=== PATIENT | male | born 1975 | race Caucasian/White ===

== ENCOUNTER 2019-03-08 06:06 | Emergency (ER) | payer BC ==
--- NOTE | 2019-03-08 07:49 | RAD REPORT ---
EXAM DESCRIPTION: CT - Head Brain Wo Cont - 03/08/2019 6:49 am CLINICAL HISTORY: Headache COMPARISON: None. TECHNIQUE: Computed axial tomography of the head was obtained. IV contrast was not requested. All CT scans are performed using dose optimization technique as appropriate and may include automated exposure control or mA/KV adjustment according to patient size. FINDINGS: An intracranial bleed is not seen . The ventricles are normal in caliber. No extra-axial fluid collection is noted. Fluid within the sinuses/ mastoids is not seen. IMPRESSION: No acute intracranial abnormality is seen. If patient's symptoms persist MRI of the bra in would be recommended.
--- NOTE | 2019-03-08 08:03 | ER ---
Nurse's Notes [facility] Name: Ravi Angeles Age: 43 yrs Sex: Male : 1975 Arrival Date: 03/08/2019 Time: 06:09 Bed 7 Private MD: Diagnosis: Hypertensive heart disease Presentation: 03/08 06:18 Presenting complaint: Patient states: woke up this morning and heard or felt "a pop" bb behind right ear has no other symptoms, denies pain, difficulty swallowing, weakness, just wants to make sure he did not have a stroke. Transition of care: patient was not received from another setting of care. Onset of symptoms was March 08, 2019. Risk Assessment: Do you want to hurt yourself or someone else? Patient reports no desire to harm self or others. Initial Sepsis Screen: Does the patient meet any 2 criteria? No. Patient's initial sepsis screen is negative. Does the patient have a suspected source of infection? No. Patient's initial sepsis screen is negative. Care prior to arrival: None. 06:18 Method Of Arrival: Ambulatory bb 06:18 Acuity: AWAIS 4 bb Triage Assessment: 07:00 General: Appears in no apparent distress. comfortable, Behavior is cooperative, bp appropriate for age, anxious. Pain: Denies pain. EENT: No deficits noted. Neuro: No deficits noted. Cardiovascular: Rhythm is sinus rhythm. Respiratory: No deficits noted. GI: No signs and/or symptoms were reported involving the gastrointestinal system. : No signs and/or symptoms were reported regarding the genitourinary system. Derm: No deficits noted. Musculoskeletal: No deficits noted. Historical: - Allergies: 06:21 No Known Allergies; bb - Home Meds: 06:21 Lisinopril Oral [Active]; bb - PMHx: 06:21 Hypertension; bb - PSHx: 06:21 None; bb - Immunization history:: Adult Immunizations up to date. - Social history:: Smoking status: Patient uses tobacco products, vapes, Patient uses alcohol, occasionally. Patient/guardian denies using street drugs. - Ebola Screening: : No symptoms or risks identified at this time. Screenin:16 Abuse screen: Denies threats or abuse. Nutritional screening: No deficits noted. ea Tuberculosis screening: No symptoms or risk factors identified. Fall Risk None identified. 06:22 VAN Screening: Arm Drift: Patient shows no arm weakness. Patient is VAN negative. bb Assessment: 06:14 General: Appears in no apparent distress. Behavior is calm, cooperative, appropriate ea for age. Pain: Denies pain. Neuro: Level of Consciousness is awake, alert, obeys commands, Oriented to person, place, time, situation. Cardiovascular: Patient's skin is warm and dry. Respiratory: Airway is patent Respiratory effort is even, unlabored, Respiratory pattern is regular, symmetrical. Derm: Skin is pink, warm \\T\\ dry. 07:00 Reassessment: RECD REPORT FROM ALEJANDRA CONNOLLY. 43YO WM P/W SUBJECTIVE NEURO S/S. NO OBJECTIVE bp FINDINGS AT THIS TIME. CT RESULTS PENDING. 08:07 Reassessment: PT D/C HOME AMBULATORY, DX WITH HYPERTENSIVE HEART DISEASE. bp Vital Signs: 06:21 BP 132 / 97; Pulse 72; Resp 16 S; Temp 97.3(O); Pulse Ox 97% on R/A; Weight 92.99 kg bb (R); Height 6 ft. 2 in. (187.96 cm) (R); Pain 0/10; 07:00 BP 118 / 84; Pulse 71; Resp 16; Pulse Ox 98% ; bp 08:08 BP 119 / 88; Pulse 62; Resp 16; Temp 97.5; Pulse Ox 98% ; bp 06:21 Body Mass Index 26.32 (92.99 kg, 187.96 cm) bb ED Course: 06:09 Patient arrived in ED. am2 06:14 Alejandra Manzo, CATHLEEN is Primary Nurse. ea 06:15 Donald Monahan PA is PHCP. cp 06:15 Humble Aggarwal MD is Attending Physician. cp 06:19 Patient has correct armband on for positive identification. Bed in low position. Call ea light in reach. Side rails up X2. 06:19 Arm band placed on right wrist. Patient placed in an exam room, on a stretcher, on ea pulse oximetry. 06:20 Triage completed. bb 06:47 CT completed. Patient tolerated procedure well. Patient moved to CT BY WALKING. Patient eh moved back from CT. 06:53 CT Head Brain wo Cont In Process Unspecified. EDMS 07:20 Primary Nurse role handed off by Alejandra Manzo RN bp 07:20 Cory Rasmussen, RN is Primary Nurse. bp 08:08 No provider procedures requiring assistance completed. Patient did not have IV access bp during this emergency room visit. Administered Medications: No medications were administered Outcome: 08:02 Discharge ordered by . cp 08:08 Discharged to home ambulatory. bp 08:08 Condition: stable 08:08 Discharge instructions given to patient, Instructed on discharge instructions, follow up and referral plans. Demonstrated understanding of instructions, follow-up care. 08:09 Patient left the ED. bp Signatures: Dispatcher [employer] EDMS Harry Banks Brenda, RN RN bb Donald Monahan, NOAH PA Buffy Olguin am2 Alejandra Manzo, RN RN Cory Chiu, RN RN bp
--- NOTE | 2019-03-08 08:04 | EDPHYS ---
Physician Documentation [facility] Name: Ravi Angeles Age: 43 yrs Sex: Male : 1975 Arrival Date: 03/08/2019 Time: 06:09 Bed 7 Private MD: ED Physician Humble Aggarwal HPI: 03/08 06:26 This 43 yrs old Male presents to ER via Ambulatory with complaints of heard cp pop on side of head. 06:26 Patient reports he awoke this morning about 0530 and felt or heard a "pop" on right cp side of head. Patient reports having slight pain that has resolved. Denies any other complaints. Historical: - Allergies: 06:21 No Known Allergies; bb - Home Meds: 06:21 Lisinopril Oral [Active]; bb - PMHx: 06:21 Hypertension; bb - PSHx: 06:21 None; bb - Immunization history:: Adult Immunizations up to date. - Social history:: Smoking status: Patient uses tobacco products, vapes, Patient uses alcohol, occasionally. Patient/guardian denies using street drugs. - Ebola Screening: : No symptoms or risks identified at this time. ROS: 06:30 Eyes: Negative for injury, pain, redness, and discharge. cp 06:30 Constitutional: Negative for body aches, chills, fever. 06:30 ENT: Negative for drainage from ear(s), ear pain, sore throat, difficulty swallowing, difficulty handling secretions. 06:30 Cardiovascular: Negative for chest pain, edema, palpitations. 06:30 Respiratory: Negative for cough, shortness of breath, wheezing. 06:30 Neuro: Negative for altered mental status, dizziness, gait disturbance, headache, numbness, seizure activity, weakness. 06:30 All other systems are negative. Exam: 06:37 Head/Face: Normocephalic, atraumatic. cp 06:37 Constitutional: The patient appears in no acute distress, alert, awake, non-diaphoretic, non-toxic, well developed, well nourished. 06:37 Eyes: Periorbital structures: appear normal, Pupils: equal, round, and reactive to light and accomodation, Extraocular movements: intact throughout, Conjunctiva: normal, no exudate, no injection, Lids and lashes: appear normal, bilaterally. 06:37 ENT: External ear(s): are unremarkable, Ear canal(s): are normal, clear, TM's: dullness, bilaterally, Nose: is normal, Mouth: is normal, Posterior pharynx: is normal, airway is patent, no erythema, no exudate. 06:37 Neck: ROM/movement: is normal, is supple, without pain, no range of motions limitations, no nuchal rigidity. 06:37 Chest/axilla: Inspection: normal, Palpation: is normal, no crepitus, no tenderness. 06:37 Cardiovascular: Rate: normal, Rhythm: regular, Heart sounds: murmur, not appreciated. 06:37 Respiratory: the patient does not display signs of respiratory distress, Respirations: normal, no use of accessory muscles, no retractions, no splinting, no tachypnea, labored breathing, is not present, Breath sounds: are clear throughout, no decreased breath sounds, no stridor, no wheezing. 06:37 Abdomen/GI: Inspection: abdomen appears normal, Palpation: abdomen is soft and non-tender, in all quadrants. 06:37 Skin: no rash present. 06:37 Neuro: Orientation: to person, place \\T\\ time. Mentation: is normal, Cerebellar function: is grossly normal, Motor: moves all fours, strength is normal, Sensation: is normal. Vital Signs: 06:21 BP 132 / 97; Pulse 72; Resp 16 S; Temp 97.3(O); Pulse Ox 97% on R/A; Weight 92.99 kg bb (R); Height 6 ft. 2 in. (187.96 cm) (R); Pain 0/10; 07:00 BP 118 / 84; Pulse 71; Resp 16; Pulse Ox 98% ; bp 08:08 BP 119 / 88; Pulse 62; Resp 16; Temp 97.5; Pulse Ox 98% ; bp 06:21 Body Mass Index 26.32 (92.99 kg, 187.96 cm) bb MDM: 06:23 Patient medically screened. cp 07:30 Differential diagnosis: migraine, subarachnoid bleed, subdural hematoma, temporal cp arteritis, tension headache. 08:01 Data reviewed: vital signs, nurses notes, radiologic studies, CT scan. cp 08:02 Counseling: I had a detailed discussion with the patient and/or guardian regarding: the cp historical points, exam findings, and any diagnostic results supporting the discharge/admit diagnosis, radiology results, to return to the emergency department if symptoms worsen or persist or if there are any questions or concerns that arise at home. 03/08 06:27 Order name: CT Head Brain wo Cont; Complete Time: 08:00 cp 03/08 08:00 Interpretation: Report reviewed. cp Administered Medications: No medications were administered Disposition: 03/08/19 08:02 Discharged to Home. Impression: Hypertensive heart disease. - Condition is Stable. - Discharge Instructions: Hypertension, How to Take Your Blood Pressure, [id number], Managing Your Hypertension. - Medication Reconciliation Form, Thank You Letter, Antibiotic Education, Prescription Opioid Use form. - Follow up: Private Physician; When: As needed; Reason: Worsening of condition. - Problem is new. - Symptoms have improved. Signatures: Dispatcher [employer] EDMS Sweta Hadley RN RN Donald Gómez PA PA cp Antunez, Elena, RN RN Cory Chiu RN RN bp Corrections: (The following items were deleted from the chart) 08:03 08:02 03/08/2019 08:02 Discharged to Home. Impression: Person with feared health cp complaint in whom no diagnosis is made. Condition is Stable. Forms are Medication Reconciliation Form, Thank You Letter, Antibiotic Education, Prescription Opioid Use. Follow up: Private Physician; When: As needed; Reason: Worsening of condition. Problem is new. Symptoms have improved. cp 08:09 08:03 03/08/2019 08:02 Discharged to Home. Impression: Hypertensive heart disease. bp Condition is Stable. Forms are Medication Reconciliation Form, Thank You Letter, Antibiotic Education, Prescription Opioid Use. Follow up: Private Physician; When: As needed; Reason: Worsening of condition. Problem is new. Symptoms have improved. cp
== END 2019-03-08 08:09 | disposition home or self-care (01) ==
LOC: ER 06:06
DX: I11.9 Hypertensive heart disease without heart failure (principal); Z72.0 Tobacco use
CPT/HCPCS: 70450; 99284